=== PATIENT | male | born 1940 | race Asian ===

== ENCOUNTER 2016-05-06 06:25 | Day surgery (SDC) | payer MEDICARE, OTHER ==
--- NOTE | 2016-05-04 21:43 | PCM.ANEPRE ---
Anesthesia Pre-Op Review Reason for Review: SEE UNDER CARDIAC CHECK LIST COMMENTS Anesthesia Recommendations: Proceed with Procedure Additional Comments 75 yo man for LLQ hernia repair. Non critical CAD 2009 with one lesion that was stented. took plavix for a year and reconditioned. Saw [facility] of care manager 05/2013 and was fine. Was supposed to follow up in one year but didnt. Dr romero notes that he runs and does pushups every other day, plays in a baseball league. Appears to have excellent functional capacity so ok to proceed with usual DOS evaluation. Chart Reviewed by: Kumar Coleman MD, MD May 04, 2016 21:43
[~2016-05-06] VITALS: Ht 162.6 cm; Wt 65.0 kg
[2016-05-06] VITALS (8 sets, daily range): BP systolic 140–163; BP diastolic 67–76; PULSE 53–63; RESP 13–17; O2SAT 97–100
[2016-05-06] MEDS: Lactated Ringer's 1,000 ML IV SCH ×2 (05:14→08:25)
[~2016-05-06 06:25] MED LIST: MAGN250T29 PO; OMEP20CA11 PO; OXCA300T2 PO; SIMV40TA5 PO; UBID100C16 PO
[2016-05-06] MEDS ORDERED: Propofol 10,000 mCg/mL 20 mL Inj ONE (06:26)
[2016-05-06] MEDS ORDERED: Ondansetron 2 mg/mL 2 mL Inj ONE (06:26)
[2016-05-06] MEDS ORDERED: fentaNYL-PF 50 mCg/mL 2 mL Inj ONE (06:26)
[2016-05-06] MEDS ORDERED: Glycopyrrolate 0.2 mg/mL 5 mL Inj ONE (06:26)
[2016-05-06] MEDS ORDERED: Rocuronium 10 mg/mL 5 mL Inj ONE (06:26)
[2016-05-06] MEDS ORDERED: Dexamethasone 4 mg/mL Inj ONE (06:26)
[2016-05-06] MEDS ORDERED: Neostigmine 1 mg/mL 5 mL Inj ONE (06:26)
[2016-05-06] MEDS ORDERED: Bupivacaine-MPF 0.5% W/EPI 30 mL Inj INFILTRATE ONE (08:25)
[2016-05-06] MEDS: CeFAZolin 2 Gm/50 mL D5W IV Premix IV ONE ×2 (08:25→08:40)
[2016-05-06] MEDS ORDERED: Lactated Ringer's 1,000 ML IV SCH (08:39)
[2016-05-06] MEDS ORDERED: Lactated Ringer's 500 ML IV PRN (08:39)
--- NOTE | 2016-05-06 08:39 | PCM.HPANE ---
Patient Data Date of Service: May 06, 2016 (0810) Surgeon Admitting Provider: Attending Provider:Chelsie Yanez MD Primary Care Physician:Law Denise MD Other Provider:Ethan Huertas Anesthesia Reason for Visit Left Lower Quadrant Abdominal Hernia Ht/WT & BMI Height (Feet): 5 Height (Inches): 4.00 Weight (Kilograms): 65.0 Body Mass Index 24.00 Allergies Coded Allergies: aspirin (Verified Allergy, Unknown, 04/25/14) Past Anesthesia History Anesthesia History: Denies:: Abnormal Airway, Anesthesia Reactions, Difficult Intubation, Fam Anesthesia Reaction, Fam Malignant Hypertherm, Malignant Hyperthermia Diabetes History Hx Diabetes?: No MRSA MRSA: No Medications Hypertension Medication: Yes Home Meds Incl Beta Jaime: No Reported Medications Omeprazole 20 Mg Capsule.dr20 Mg PO DAILY Ref 0 05/04/16 Magnesium Oxide (Magnesium)250 Mg [id number] Mg PO DAILY 05/04/16 Ubidecarenone (Coq-10)100 Mg [id number] Mg PO DAILY 04/25/14 Simvastatin 40 Mg [id number] Mg PO HS 30 Days Ref 0 04/25/14 Oxcarbazepine 300 Mg [id number] Mg PO TID 30 Days 04/24/14 History History of ENT Problems?: Yes HEENT History: Positive for:: Cataracts (2010 surg) Hearing Problem Sinus Problem (Seasonal sinusitis) Denies:: Abnormal Airway Difficult Intubation Dysphagia Teeth Condition: Missing Teeth Hx of Heart Problems?: Yes Cardiovascular History: Positive for:: Cardiac Surgery (stent 2009) Chest Pain Coronary Artery Disease Hypertension (hyperlipidemia) Denies:: AICD Atrial Fibrillation Pacemaker Valvular Heart Disease Hx of Respiratory Problem?: No Respiratory History: Denies:: Asthma COPD Cough Hemoptysis Oxygen Administration Pneumonia Tuberculosis Use of C-PAP Machine Use of Inhalers / NEBS Hx Neurologic Problems?: Yes Neurological History: Positive for:: Dizziness Headaches Denies:: CVA Dementia Multiple Sclerosis Parkinson's Disease Seizures TIA Other Neurological Pertinent: HX TRIGEMINAL NEURALGIA Hx of GI Problems?: Yes Gastrointestinal History: Positive for:: Gastroesphageal Reflux Heartburn Rectal Bleeding Denies:: Cirrhosis Diverticulitis Hepatitis Hiatal Hernia Liver Disease Hx of Problems?: No Male Hx: Positive for:: Prostate Problems (bph) Skin History: Denies:: History Skin Disorders? Pressure Ulcers Hx Musculoskeletal Problems?: Yes Musculoskeletal History: Positive for:: Osteoarthritis Denies:: Back Injury Joint Replacement Hx of Psycho/Social Problems?: No Psycho Social History: Denies:: Anxiety Bipolar Disorder Hx Depression Hx Surgeries?: Yes (cardiac stent) Hx Any Other Health Problems?: Yes Other History: Positive for:: Hospitalization (cardiac stent) Denies:: Cancer Endocrine Disease Thyroid Disease History Blood Transfusions: Positive for:: Accept Blood Products? Denies:: Blood Transfusions Hx Diabetes: No Hx Alcohol Use: NoHx Substance Use: No Smoking Status: Never Smoker Have You Smoked inLast 12 mo: No Stop/Bang S-Snoring: Do You Snore Loudly: Yes T-Tired: feel tired, fatigued: No O-Obsered: Observed not breath: No P-Blood Pressure: treated: Yes B- Body Mass Index > 35 kg/m2: No A- Age over 50: Yes N- Neck Large Circumference: No G- Gender Male: Yes CON Total Score: 4 CON Category 2: Yes Risk Assessment Category Category 1A: Patient has history of documented sleep apnea, and HAS NOT received any narcotic, sedative or anesthesia administration during this stay. Category 1B: Patient has history of documented sleep apnea, and HAS received any narcotic , sedative or anesthesia administration during this stay Category 2: Patient has SUSPECTED Obstructive Sleep Apnea, and HAS received any narcotic , sedative or anesthesia administration during this stay. Category 3: Patient has SUSPECTED Obstructive Sleep Apnea and HAS NOT received narcotic, sedative or anesthesia administration during this stay. Category 4: Outpatient in Procedural Areas with known sleep apnea or who screen positive for High Risk via the STOP/BANG questionnaire. Exam Exam Vital Signs Vital Signs Date Time Temp Pulse Resp B/P Pulse Ox O2 Delivery O2 Flow Rate FiO2 05/06/16 07:05 36.0 63 145/75 General Appearance: Alert, Oriented X3, Cooperative, No Acute Distress HEENT/AIRWAY: MP 2 Lungs: Clear to Auscultation Heart: Exam Unremarkable Meds/Labs/Diagnostics Admission Meds Current Medications Lactated Ringer's 1,000 ml @ 120 mls/hr Q8H20M IV Last administered on t 08:25; Start 05/06/16 at 05:00; Stop 05/06/16 at 13:19 Cefazolin Sodium/ Dextrose/Premix (Ancef Inj/IV Premix) 50 ml @ 100 mls/hr PREOP ONCE IV Last administered on 05/06/16 08:25; Start 05/06/16 at 06:00; Stop 05/06/16 at 06:29; Status DC Bupivacaine HCl/ Epinephrine Bitart (Sensorcaine-MPF 0.5% W/EPI Inj) 30 ml STK- MED ONCE INFILTRATE Last administered on 05/06/16 08:25; Start 05/06/16 at 08: 25; Stop 05/06/16 at 08:32; Status DC Plan Impression Patient chart reviewed, patient interviewed and anesthestic plan with risks, benefits, and alternatives discussed, and informed consent obtained. NPO Status: 05/05 at 1999 ASA Physical Status: ASA2 Mod Systemic Disease Anesthetic Plan: GA Bene/Risks/Altern/Consents: Yes HP Complete Prior to Induction: Yes Steve Rapp MD May 06, 2016 08:39
[2016-05-06] MEDS ORDERED: MetoCLOpramide 5 mg/mL 2 mL Inj IVPUSH PRN (08:40)
[2016-05-06] MEDS ORDERED: Ondansetron 2 mg/mL 2 mL Inj IVPUSH PRN (08:40)
[2016-05-06] MEDS ORDERED: HYDROmorphone 1 mg/mL Inj IVPUSH PRN (08:40)
[2016-05-06] MEDS ORDERED: EPHEDrine Sulfate 50 mg/mL Inj IVPUSH PRN (08:40)
[2016-05-06] MEDS ORDERED: fentaNYL-PF 50 mCg/mL 2 mL Inj IVPUSH PRN (08:40)
[2016-05-06] MEDS ORDERED: Dexamethasone 4 mg/mL Inj IVPUSH PRN (08:40)
[2016-05-06] MEDS ORDERED: Phenylephrine 10,000 mCg/mL Inj IVPUSH PRN (08:40)
[2016-05-06] MEDS ORDERED: oxyCODONE-Acetamin 5-325 mg Tablet PO PRN (10:35)
--- NOTE | 2016-05-06 10:49 | PCM.SURGOP ---
Surgical Operative Report Date of Service: May 06, 2016 Pre Operative Diagnosis Abdominal wall hernia, left lower quadrant, 1.4 cm defect Post Operative Diagnosis Abdominal wall pain Procedure: Laparoscopy; preperitoneal dissection with peritoneal closure Surgeon and Director Hematology: Surgeon: Chelsie Yanez MD Assistants: Maryuri Lamar MS3 Indication for Procedure This is a very active 75yom who competes in softball who found during certain activities that he was experiencing pain in the lower left aspect of the abdomen. His PCP ordered a groin ultrasound which was read by the radiologist as a hernia of the left lower quadrant of the abdominal wall, with a fascial defect measuring 1.4 cm. However, the fascial defect was not palpable on examination. Due to associated symptoms and radiologic confirmation of the presence of a hernia, he was consented for laparoscopy with repair. Findings: 1. No hernia of the abdominal wall. 2. No groin hernias. There was very mild eventration of the direct space, right greater than left, inferior to the site of the patient's described pain, but no hernia defect. Photographs were taken. 3. The preperitoneal space was explored over a 3 cm x 3 cm area at the location of the patient's described pain to determine if there was a defect in fascia with protruding preperitoneal fat that could be reduced; no defect was identified. Peritoneum closed with three interrupted stitches. Procedure Details The patient was brought to the operating room and placed in supine position. General endotracheal anesthesia was smoothly induced. Antibiotics were infused. A warming blanket, balbuena, and SCDs were placed. The operative field was prepped and draped in sterile fashion. A pause was performed to confirm the correct patient, procedure, and site. The abdomen was entered using an infraumbilical transverse incision with an 11 mm Magdalene port under direct vision. The abdominal wall and groins were carefully visualized for several minutes. No abdominal wall hernia was seen in the left lower quadrant of the abdomen, as had been described on preoperative ultrasound. There was very mild eventration of the direct space, right greater than left. There was no hernia defect and the patient had described no pain on the right. The location of the direct space was inferior to the site of the patient's described pain which had been marked on the skin preoperatively, approximately at the midpoint between the umbilicus and ASIS on the left. At this location was a very subtle irregularity of the peritoneum and therefore the decision was made to do a very limited exploration of the preperitoneal space to confirm there was not a small defect with preperitoneal fat within it. Therefore, two additional 5 mm ports were placed at the level of the umbilicus, one on the right and one on the left. A 3 cm defect was created in the peritoneum just superior to the location of the patient's described pain. This was carefully dissected and there was no defect identifiable in the abdominal wall. The peritoneum was closed using three interrupted silk sutures at 0.75cm intervals. 0.5% Marcaine with epinephrine was injected into the fascia and skin at all port sites. The skin was closed with 4-0 Monocryl and dermabond was applied. The patient was awakened from general anesthesia and taken to the postoperative care unit in good condition. Complications There were no periprocedural complications identified. Surgical Specimen Removed: No Specimen sent to Pathology: No Anesthetic Plan: GA Grafts, Implants: None Output, Estimated Blood Loss: 2 (ml) Blood Administration during rios: No Chelsie Yanez MD May 06, 2016 10:49
[2016-05-06 10:54] LABS: APPEARANCE,URINE SLIGHTLY CLOUDY (CLEAR,HAZY); COLOR,URINE STRAW (YELLOW); OCCULT BLOOD,URINE MODERATE (NEGATIVE); UROBILINOGEN,URINE NORMAL (NORMAL)
--- NOTE | 2016-05-06 11:51 | PCM.ANEP1 ---
Post Anesthesia Phase 1 PACU Phase 1 Assessment Date of Service: May 06, 2016 Vital Signs Vital Signs Date Time Temp Pulse Resp B/P Pulse Ox O2 Delivery O2 Flow Rate FiO2 05/06/16 11:05 36.2 54 16 163/76 100 Room Air 05/06/16 10:59 54 16 153/70 98 Room Air 05/06/16 10:45 55 13 148/73 99 Room Air 05/06/16 10:30 56 16 144/71 98 Room Air 05/06/16 10:25 53 16 140/67 99 Room Air 05/06/16 10:20 56 15 149/72 97 Room Air 05/06/16 10:15 36.4 59 17 156/75 98 Room Air 05/06/16 07:05 36.0 63 145/75 Anesthetic Administered: GA Level of Alertness: Sleeping, hard to arouse Oxygen Delivery: Room Air Lungs: Clear to Auscultation Steve Rapp MD May 06, 2016 11:51
--- NOTE | 2016-05-06 11:51 | PCM.ANEP2 ---
Post Anesthesia Evaluation ASA/CMS Post Anesthesia VS in Patient's Normal Range?: Yes Resp Stable; Airway Patent?: Yes CV Function & Hydration Stable: Yes Mental Status Recovered?: Yes Pain control Satisfactory?: Yes N/V Control Satisfactory?: Yes Steve Rapp MD May 06, 2016 11:51
== END 2016-05-06 23:59 | disposition home or self-care (01) ==
LOC: SAS 06:25
PROVIDERS: ATTEND Surgery
DX: R10.9 Unspecified abdominal pain (principal); I25.10 Atherosclerotic heart disease of native coronary artery without angina pectoris; I10 Essential (primary) hypertension; E78.5 Hyperlipidemia, unspecified; R73.03 Prediabetes; K21.9 Gastro-esophageal reflux disease without esophagitis; N40.0 Benign prostatic hyperplasia without lower urinary tract symptoms; Z95.5 Presence of coronary angioplasty implant and graft